=== PATIENT | male | born 2000 | race African-American/Black ===

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

== ENCOUNTER 2022-12-25 21:15 | Emergency (ER) | payer OTHER ==
[~2022-12-25] VITALS: Ht 175.3 cm; Wt 77.3 kg
[2022-12-25] MEDS ORDERED: DOXYCYCLINE 10100 MG PO (22:08)
[2022-12-25 22:47] VITALS: BP 132/78; PULSE 82; TEMP 98.1
== END 2022-12-25 22:47 | disposition home or self-care (01) ==
LOC: COL.ER 21:15
DX: N45.1 Epididymitis (principal)
CPT/HCPCS: J0696